=== PATIENT | female | born 1950 | race African-American/Black ===

== ENCOUNTER 2016-06-28 20:15 | Emergency (ER) | payer MEDICARE, OTHER ==
[~2016-06-28] VITALS: Ht 154.9 cm; Wt 68.2 kg
[~2016-06-28 20:15] MED LIST: AMLO-512 PO; BENA20 PO; HYDR-3971 PO; HYDR25TA PO; SLOWK8 PO
[2016-06-28] MEDS ORDERED: PHOSLOC PO (20:31)
[2016-06-28 20:42] VITALS: BP 143/109
== END 2016-06-28 21:18 | disposition left against medical advice (07) ==
LOC: EMS 20:17
DX: T40.1X1A Poisoning by heroin, accidental (unintentional), initial encounter (principal); I10 Essential (primary) hypertension; F17.210 Nicotine dependence, cigarettes, uncomplicated; Z86.73 Personal history of transient ischemic attack (TIA), and cerebral infarction without residual deficits
CPT/HCPCS: 99283